=== PATIENT | female | born 1995 | race Caucasian/White ===

== ENCOUNTER → 2018-10-12 | Outpatient (CLI) | payer BC, OTHER ==
--- NOTE | ~2018-10-12 | HM ---
[place], [place] HOLTER MONITOR REPORT NAME: CHAU CORCORAN UNIT #: [id number] ROOM: DOCTOR: JESSIE GRAY MD BIRTHDATE: [birth year] DOS: 10/12/2018 DATE OF REPORTING AND ANALYSIS: 10/17/2018 INDICATIONS OF THE STUDY: Palpitations and syncope. This is a 48-hour Holter monitor report. IMPRESSION: Average heart rate was 71 beats per minute with a minimum heart rate of 43 beats per minute, occurring at 5:39 a.m. with the maximum heart rate was 158 beats per minute, occurring at 2:36 p.m. Ventricular ectopy activity consisted of about 8 beats of which 7 were single PVCs. The patient's rhythm also included about 9 hours 59 minutes of bradycardia and 5 hours 16 minutes of tachycardia. Supraventricular ectopic activity consisted of 208 beats of which 16 were in atrial couplets, 119 were late beats, 73 were single premature atrial complexes. No significant pauses were noted. No diary was submitted with this report. Jessie Gray MD CM:HOLTER:HOLTER MONITOR REPORT [id number] JESSIE GRAY MD
== END | disposition home or self-care (01) ==
LOC: CARD 10-11 10:00
DX: R00.0 Tachycardia, unspecified (principal); R00.2 Palpitations; Z87.898 Personal history of other specified conditions

== ENCOUNTER → 2018-11-24 | Outpatient (CLI) | payer BC, OTHER | END | disposition home or self-care (01) | LOC: US 11-22 14:00 | DX: Z34.92 Encounter for supervision of normal pregnancy, unspecified, second trimester (principal); Z3A.25 25 weeks gestation of pregnancy ==

== ENCOUNTER → 2018-12-14 | Outpatient (CLI) | payer BC, OTHER | END | disposition home or self-care (01) | LOC: US 15:00 | DX: Z34.02 Encounter for supervision of normal first pregnancy, second trimester (principal); Z3A.28 28 weeks gestation of pregnancy ==

== ENCOUNTER → 2019-01-13 | Outpatient (CLI) | payer BC, OTHER | END | disposition home or self-care (01) | LOC: US 14:57 | DX: Z34.82 Encounter for supervision of other normal pregnancy, second trimester (principal); Z3A.32 32 weeks gestation of pregnancy ==

== ENCOUNTER 2019-01-26 22:09 | Emergency (ER) | payer BC, OTHER ==
[~2019-01-26] VITALS: Ht 172.7 cm; Wt 65.8 kg
== END 2019-01-26 23:00 | disposition left against medical advice (07) ==
LOC: ED 22:09
DX: O47.03 False labor before 37 completed weeks of gestation, third trimester (principal); Z3A.34 34 weeks gestation of pregnancy; Z88.8 Allergy status to other drugs, medicaments and biological substances

== ENCOUNTER → 2019-11-28 | Outpatient (CLI) | payer BC, OTHER | END | disposition home or self-care (01) | LOC: US 11:08 | PROVIDERS: ATTEND Nurse Practitioner Women's Health | DX: Z34.01 Encounter for supervision of normal first pregnancy, first trimester (principal); Z3A.01 Less than 8 weeks gestation of pregnancy ==

== ENCOUNTER → 2020-02-27 | Outpatient (CLI) | payer BC, OTHER | END | disposition home or self-care (01) | LOC: US 15:00 | PROVIDERS: ATTEND Nurse Practitioner Women's Health | DX: Z34.82 Encounter for supervision of other normal pregnancy, second trimester (principal); Z3A.20 20 weeks gestation of pregnancy ==

== ENCOUNTER → 2020-05-21 | Outpatient (CLI) | payer BC, OTHER | END | disposition home or self-care (01) | LOC: US 10:30 | PROVIDERS: ATTEND Nurse Practitioner Women's Health | DX: Z34.83 Encounter for supervision of other normal pregnancy, third trimester (principal); Z3A.32 32 weeks gestation of pregnancy ==

== ENCOUNTER → 2020-07-19 | Outpatient (CLI) | payer BC, OTHER | END | disposition home or self-care (01) | LOC: COVID19 14:17 | PROVIDERS: ATTEND Obstetrics & Gynecology | DX: Z34.90 Encounter for supervision of normal pregnancy, unspecified, unspecified trimester (principal); Z3A.00 Weeks of gestation of pregnancy not specified; Z20.822 Contact with and (suspected) exposure to COVID-19 ==

== ENCOUNTER 2021-09-23 01:29 | Emergency (ER) | payer BC, OTHER ==
[~2021-09-23] VITALS: Ht 172.7 cm; Wt 61.2 kg
== END 2021-09-23 02:58 | disposition home or self-care (01) ==
LOC: ED 01:29
DX: F41.9 Anxiety disorder, unspecified (principal); Z88.8 Allergy status to other drugs, medicaments and biological substances